=== PATIENT | female | born 2000 | race Caucasian/White ===

== ENCOUNTER 2025-07-30 01:45 | Inpatient (IN) | payer OTHER ==
[2025-07-30] MEDS ORDERED: Sodium Chloride 0.9% 10 ML Syringe FLUSH PRN (02:42)
[2025-07-30] MEDS ORDERED: Ondansetron 4 MG/2 ML SDV IVPUSH PRN (02:42)
[2025-07-30] MEDS ORDERED: Nalbuphine 10 MG/1 ML Vial IVPUSH PRN (02:42)
[2025-07-30] MEDS ORDERED: Oxytocin/0.9 % Sodium Chloride 30 UNIT/500 ML BAG IV SCH (02:45)
[2025-07-30 03:16] LABS: BASOPHILS ABSOLUTE AUTO 0.0 K/mm3 (0.0-0.2); BASOPHILS PERCENT AUTO 0.3 % (0.0-1.0); EOSINOPHILS ABSOLUTE AUTO 0.0 K/mm3 (0.0-0.4); EOSINOPHILS PERCENT AUTO 0.4 % (0.0-6.0); IMMATURE GRAN ABSOLUTE AUTO 0.05 K/mm3 (0.00-0.05); IMMATURE GRAN PERCENT AUTO 0.7 % (0.0-0.4); LYMPHOCYTES ABSOLUTE AUTO 1.2 K/mm3 (1.0-4.8); LYMPHOCYTES PERCENT AUTO 16.3 % (24.0-44.0); MEAN PLATELET VOLUME 12.1 fl (9.4-12.3); MONOCYTES ABSOLUTE AUTO 0.5 K/mm3 (0.0-0.8); MONOCYTES PERCENT AUTO 6.3 % (0.0-8.0); NEUTROPHILS ABSOLUTE AUTO 5.8 K/mm3 (1.8-7.7); NEUTROPHILS PERCENT AUTO 76.0 % (41.0-71.0); NRBC ABSOLUTE 0.00 (0.00-0.02); NRBC PERCENT 0.0 % (0.0-0.2); PLATELET COUNT,PLT 201 K/mm3 (150-400); RED BLOOD CELL COUNT 3.80 M/mm3 (4.10-5.30); WHITE BLOOD CELL COUNT,WBC 7.60 K/mm3 (3.9-11.3)
[2025-07-30] MEDS: Lactated Ringers 1,000 ML IV SCH (06:34)
[2025-07-30] MEDS: Oxytocin/0.9 % Sodium Chloride 30 UNIT/500 ML BAG IV SCH (06:34)
[2025-07-30] MEDS ORDERED: diphenhydrAMINE 50 MG/ML SDV IVPUSH PRN (08:00)
[2025-07-30] MEDS ORDERED: ePHEDrine 50 MG/ML SDV IVPUSH PRN (08:00)
[2025-07-30] MEDS: Bupivacaine/fentaNYL/NS 100 ML Bag EPIDUR PRN (08:24)
[2025-07-30] MEDS ORDERED: Sodium Chloride 0.9% 10 ML Syringe FLUSH SCH (09:00)
[2025-07-30] MEDS: Witch Hazel Medicated Pads 40/Jar TOP PRN (21:11)
[2025-07-30] MEDS: Benzocaine/Menthol 20%-0.5% Spray 78 GM Cannister TOP PRN (21:11)
== END 2025-08-01 10:49 | disposition home or self-care (01) | DRG 807 ==
LOC: JD.OBCHECK 01:45 → JD.OB 01:47 → JD.OBCHECK 02:47 → OBSVTOIN 18:11 → JD.OB 18:12
PROVIDERS: ADMIT Obstetrics & Gynecology; ATTEND Obstetrics & Gynecology
PROC: 10D07Z6 Extraction of Products of Conception, Vacuum, Via Natural or Artificial Opening (ICD-10-PCS; principal; 2025-07-30)
PROC: 3E0R3BZ Introduction of Anesthetic Agent into Spinal Canal, Percutaneous Approach (ICD-10-PCS; principal; 2025-07-30)
DX: O42.92 Full-term premature rupture of membranes, unspecified as to length of time between rupture and onset of labor (principal); Z37.0 Single live birth; O70.1 Second degree perineal laceration during delivery; O75.81 Maternal exhaustion complicating labor and delivery; Z3A.39 39 weeks gestation of pregnancy; Z98.890 Other specified postprocedural states; Z79.899 Other long term (current) drug therapy
CPT/HCPCS: 36415; 51701; 51702; 59025; 59409; 84112; 85025; 86592; 86850; 86900; 86901; A9270-GY; J3490; J7120; J7999

== ENCOUNTER 2025-08-02 10:41 | Emergency (ER) | payer OTHER ==
[2025-08-02 11:15] LABS: BASOPHILS ABSOLUTE AUTO 0.0 K/mm3 (0.0-0.2); BASOPHILS PERCENT AUTO 0.3 % (0.0-1.0); EOSINOPHILS ABSOLUTE AUTO 0.1 K/mm3 (0.0-0.4); EOSINOPHILS PERCENT AUTO 0.7 % (0.0-6.0); IMMATURE GRAN ABSOLUTE AUTO 0.08 K/mm3 (0.00-0.05); IMMATURE GRAN PERCENT AUTO 1.0 % (0.0-0.4); LYMPHOCYTES ABSOLUTE AUTO 1.1 K/mm3 (1.0-4.8); LYMPHOCYTES PERCENT AUTO 14.9 % (24.0-44.0); MEAN PLATELET VOLUME 11.8 fl (9.4-12.3); MONOCYTES ABSOLUTE AUTO 0.4 K/mm3 (0.0-0.8); MONOCYTES PERCENT AUTO 5.6 % (0.0-8.0); NEUTROPHILS ABSOLUTE AUTO 6.0 K/mm3 (1.8-7.7); NEUTROPHILS PERCENT AUTO 77.5 % (41.0-71.0); NRBC ABSOLUTE 0.00 (0.00-0.02); NRBC PERCENT 0.0 % (0.0-0.2); PLATELET COUNT,PLT 184 K/mm3 (150-400); RED BLOOD CELL COUNT 3.46 M/mm3 (4.10-5.30); WHITE BLOOD CELL COUNT,WBC 7.67 K/mm3 (3.9-11.3)
[2025-08-02 11:33] LABS: A/G RATIO 0.5 (1-2); ALANINE AMINOTRANSFERASE,ALT 24.0 U/L (14-59); ASPARTATE AMNIOTRANSFERASE,AST 25.0 U/L (15-37); BILIRUBIN TOTAL 0.3 mg/dL (0.2-1.0); BLOOD UREA NITROGEN,BUN 8.0 mg/dL (7-18); CARBON DIOXIDE,CO2 27.0 mEq/L (21-32); CHLORIDE,CL 106.0 mEq/L (98-107); CREATININE 1.0 mg/dL (0.55-1.02); EST CRCL DRUG DOSING (CG) 80.51 mL/min; ESTIMATED GFR 80.0 mL/min (>60); GLUCOSE RANDOM 92.0 mg/dL (70-99); POTASSIUM,K 3.8 mEq/L (3.5-5.1); PROTEIN TOTAL,TP 6.6 g/dl (6.4-8.2); SODIUM,NA 141.0 mEq/L (136-145); TROPONIN I HIGH SENSITIVITY 13.0 pg/mL (<=51)
[2025-08-02] MEDS: Iopamidol 755 Mg/ML 100 ML Bottle IVPUSH ONE (11:41)
[2025-08-02] MEDS: Sodium Chloride 0.9% 10 ML Syringe FLUSH ONE (11:41)
[2025-08-02 11:56] LABS: APPEARANCE,URINE CLOUDY (Clear); GLUCOSE,URINE NEGATIVE (Negative); OCCULT BLOOD,URINE 3+ (Negative)
[2025-08-02] MEDS: LORazepam 2 MG/ML SDV IVPUSH ONE (11:57)
[2025-08-02] MEDS: Sodium Chloride 0.9% 10 ML Syringe FLUSH PRN (12:02)
[2025-08-02 12:20] LABS: CREATININE,URINE RAND 55.8 mg/dL (30.0-125.0); PROTEIN CREATININE RATIO,URINE 455.2 mg/g (0-149); PROTEIN,URINE RANDOM 25.4 mg/dL (0.0-11.8)
[2025-08-02] MEDS: Labetalol 100 MG/20 ML MDV IVPUSH ONE ×2 (12:29→13:19)
[2025-08-02] MEDS: NIFEdipine 30 MG Tab.ER PO ONE (14:18)
== END 2025-08-02 16:00 | disposition home or self-care (01) ==
LOC: JD.ED 10:41
DX: O11.5 Pre-existing hypertension with pre-eclampsia, complicating the puerperium (principal); Z79.899 Other long term (current) drug therapy
CPT/HCPCS: 36415; 71275; 80053; 81001; 82570; 83880; 84156; 84484; 85025; 87086; 93005; 93306; 96374; 96375; 96376; 99285; A9270; J1920; J2060; Q9967